=== PATIENT | male | born 1980 | race Two or more races ===

== ENCOUNTER 2017-12-26 13:11 | Emergency (ER) | payer SELFPAY ==
[~2017-12-26] VITALS: Ht 182.9 cm; Wt 114.0 kg
[2017-12-26] MEDS ORDERED: IBUPROFEN 600MG TABLET PO ONE (15:15)
[2017-12-27 11:42] VITALS: BP 117/76
== END 2017-12-27 12:10 | disposition home or self-care (01) ==
LOC: ER 13:11
DX: S09.8XXA Other specified injuries of head, initial encounter (principal); Z59.0 Homelessness; E11.9 Type 2 diabetes mellitus without complications; I10 Essential (primary) hypertension; F20.9 Schizophrenia, unspecified; F17.200 Nicotine dependence, unspecified, uncomplicated; Y08.89XA Assault by other specified means, initial encounter; Y93.9 Activity, unspecified; Y92.488 Other paved roadways as the place of occurrence of the external cause; Z88.8 Allergy status to other drugs, medicaments and biological substances
CPT/HCPCS: 99283